=== PATIENT | male | born 1965 | race Two or more races ===

== ENCOUNTER 2020-01-16 12:25 | Emergency (ER) | payer SELFPAY ==
[~2020-01-16] VITALS: Ht 175.3 cm; Wt 72.6 kg
--- NOTE | 2020-01-16 12:35 | NUR ---
patient came in to the er want's x-ray of the nose. On room air, breathing evenly and unlabored. connected to the monitor and pulse ox. kept comfortable, will continue to monitor accordingly.
[2020-01-16 13:56] VITALS: BP 128/81
--- NOTE | 2020-01-16 13:56 | NUR ---
Patient discharged to home in stable condition. Written and verbal after care instructions given. Patient verbalizes understanding of instruction.
== END 2020-01-16 13:56 | disposition home or self-care (01) ==
LOC: ER 12:29
DX: S02.2XXA Fracture of nasal bones, initial encounter for closed fracture (principal); Z60.2 Problems related to living alone; W22.8XXA Striking against or struck by other objects, initial encounter; Y93.89 Activity, other specified; Y92.89 Other specified places as the place of occurrence of the external cause; Y99.8 Other external cause status
CPT/HCPCS: 70160-TC